=== PATIENT | female | born 1975 | race Two or more races ===

== ENCOUNTER 2020-10-23 10:25 | Emergency (ER) | payer OTHER ==
[~2020-10-23] VITALS: Ht 167.6 cm; Wt 92.1 kg
== END 2020-10-23 16:08 | disposition home or self-care (01) ==
LOC: ER 10:25
DX: S00.83XA Contusion of other part of head, initial encounter (principal); W18.39XA Other fall on same level, initial encounter; Y93.89 Activity, other specified; Y92.091 Bathroom in other non-institutional residence as the place of occurrence of the external cause; Y99.8 Other external cause status; R55 Syncope and collapse